=== PATIENT | female | born 1945 | race Caucasian/White ===

== ENCOUNTER 2017-03-14 09:25 | Emergency (ER) | payer OTHER ==
[~2017-03-14] VITALS: Ht 154.9 cm; Wt 90.0 kg
[~2017-03-14 09:25] MED LIST: ANEXSIA 5-3251 EACH; LEVOXYL25 MCG; PREGNENOLONE1 GM PO
[2017-03-14 10:26] LABS: HEMATOCRIT 41.1 % (36.0-46.0); MCHC 33.8 G/DL (30.0-36.0); MCV 91.7 FL (83-99); MEAN PLAT.VOLUME 10.5 uM^3 (9.5-12.4); PLATELET COUNT 196 K/uL (156-360); RBC DIS.WIDTH-CV 13.2 % (11.8-14.6); RBC DIS.WIDTH-SD 44.2 % (39-53); RED BLOOD COUNT 4.48 M/uL (3.80-5.20); WHITE BLOOD COUNT 4.9 K/uL (4.1-10.2)
[2017-03-14 10:34] LABS: CHLORIDE 105 mEq/L (99-109)
[2017-03-14 10:35] LABS: SODIUM 138 mEq/L (136-147)
[2017-03-14 10:36] LABS: GLUCOSE 119 mg/dL (70-99)
[2017-03-14 10:38] LABS: ANION GAP 9 MEQ/L (2-14)
[2017-03-14 10:40] LABS: GFR ESTIMATE (CALCULATED) > 59 mL/min/
[2017-03-14 10:41] LABS: UREA NITROGEN (BUN) 14 mg/dL (9-23)
[2017-03-14 10:46] LABS: TROP-I INTERPRETATION NEGATIVE; TROPONIN-I < 0.01 ng/mL (0.0-0.30)
[2017-03-14 13:16] LABS: TROP-I INTERPRETATION NEGATIVE; TROPONIN-I < 0.01 ng/mL (0.0-0.30)
[2017-03-14 14:01] VITALS: BP 154/87
== END 2017-03-14 14:15 | disposition home or self-care (01) ==
LOC: EME 09:25
PROVIDERS: Nurse Practitioner Family
DX: R07.89 Other chest pain (principal); K21.9 Gastro-esophageal reflux disease without esophagitis; E03.9 Hypothyroidism, unspecified; Z87.891 Personal history of nicotine dependence
CPT/HCPCS: 71020; 80048; 84484; 85027; 93005; 99281; 99284